=== PATIENT | female | born 1970 | race Asian ===

== ENCOUNTER 2017-08-14 14:43 | Emergency (ER) | payer MEDICAID ==
[~2017-08-14] VITALS: Ht 157.5 cm; Wt 54.4 kg
[2017-08-14 14:47] VITALS: BP_SYST 158
--- NOTE | 2017-08-14 15:24 | NUR ---
Patient to ER bed H1 to gown for evaluation. Side rails up.
--- NOTE | 2017-08-14 15:31 | NUR ---
Pt complains of pain and red/yellow discharge to right thumb for about 2 days. Pt states "may have cut my finger" before getting acrylic nails a week ago. Pt stated, thumb was swollen and painful two days ago and took off acrylic nail. Noted swelling and discoloration of nail/surrounding skin. Pt denies fever, N/V, or diarrhea. No other injuries/complaints per pt or noted.
--- NOTE | 2017-08-14 15:34 | NUR ---
Adrianna COREMAKER EXPERIMENTAL is at bedside examining patient.
[2017-08-14] MEDS ORDERED: LIDOCAINE 1% 10 MG/ML, 20 ML MDV INJ ONE (15:45)
[2017-08-14] MEDS ORDERED: CEPHALEXIN 500 MG CAPSULE PO ONE (15:45)
[2017-08-14] MEDS ORDERED: SULFAMETHOXAZOLE/TRIMETHOPR DS 1 TABLET PO ONE (15:45)
[2017-08-14] MEDS ORDERED: HYDROcodone/ACETAMIN 7.5-325 MG TAB PO ONE (15:45)
--- NOTE | 2017-08-14 15:54 | NUR ---
Medications given, pt tolerated well. No adverse reaction, will continue to monitor.
--- NOTE | 2017-08-14 16:05 | NUR ---
Pt resting comfortably in bed, will continue to monitor.
--- NOTE | 2017-08-14 16:45 | NUR ---
Patient has a superficial laceration not extending to dermis to right thumb. Adrianna CHIEF INNOVATION OFFICER at bedside draining right thumb. Patient tolerated well.
[2017-08-14] MEDS ORDERED: HYDROcodone/ACETAMIN 5-325 MG TAB (NORCO/ VICODIN) PO ONE (17:00)
[2017-08-14 17:30] VITALS: BP_SYST 140
--- NOTE | 2017-08-14 17:30 | NUR ---
Patient given written and verbal discharge instructions and verbalizes understanding. ER MD discussed with patient the results and treatment provided. Patient in stable condition. ID arm band removed. Rx of Keflex, Bactrim DS, Bacitracin, Motrin given. Patient educated on pain management and to follow up with PMD. Pain Scale 4. Adrianna SELF PROPELLED MINING MACHINE OPERATOR is aware, medications were given here and prescription home. Opportunity for questions provided and answered.
== END 2017-08-14 16:30 | disposition home or self-care (01) ==
LOC: SED 14:43
DX: L03.011 Cellulitis of right finger (principal); R03.0 Elevated blood-pressure reading, without diagnosis of hypertension
CPT/HCPCS: 11730; 81025; 99284; J2001

== ENCOUNTER 2017-08-16 10:00 | Emergency (ER) | payer MEDICAID ==
[~2017-08-16] VITALS: Ht 160 cm; Wt 54.4 kg
[2017-08-16 10:09] VITALS: BP_SYST 145
[2017-08-16 11:06] VITALS: BP_SYST 145
[2017-08-16] MEDS ORDERED: BACITRACIN 1 GM OINT TP ONE (11:12)
== END 2017-08-16 11:06 | disposition home or self-care (01) ==
LOC: SED 10:00
DX: S61.011D Laceration without foreign body of right thumb without damage to nail, subsequent encounter (principal); X58.XXXD Exposure to other specified factors, subsequent encounter; Y92.89 Other specified places as the place of occurrence of the external cause; Y99.8 Other external cause status
CPT/HCPCS: 99283